=== PATIENT | female | born 1965 | race Hispanic/Latino ===

== ENCOUNTER → 2018-09-15 | Outpatient (CLI) | payer BC ==
--- NOTE | 2018-09-23 08:45 | Diagnostic Imaging Report ---
#[id number] - [id number] #BILATERAL DIGITAL SCREENING MAMMOGRAM WITH CAD: 09/15/2018 CLINICAL: Routine screening. Comparison is made to exam dated: 09/07/2013 mammogram - [facility]. Current study contains 4 films. The tissue of both breasts is heterogeneously dense. This may lower the sensitivity of mammography. Current study was also evaluated with a Computer Aided Detection (CAD) system. Previously noted round mass in the right breast has resolved. There are benign calcifications in the right breast. No significant masses, calcifications, or other findings are seen in either breast. There has been no significant interval change. IMPRESSION: BENIGN There is no mammographic evidence of malignancy. A 1 year screening mammogram is recommended. The patient will be notified by letter of the results. Lg Trevino Jr., D.O. cw/:09/22/2018 16:37:32 [place] St[employer]cher: Opal HERNANDEZ)(Sandip), [facility] letter sent: Compared to Prior B9 Mammogram BI-RADS: 2 Benign
== END ==
LOC: MAMMO 08:45
PROVIDERS: ATTEND Internal Medicine
DX: Z12.31 Encounter for screening mammogram for malignant neoplasm of breast (principal)
CPT/HCPCS: 77067

== ENCOUNTER → 2019-03-10 | Outpatient (CLI) | payer BC ==
--- NOTE | 2019-03-10 09:16 | Diagnostic Imaging Report ---
EXAM: US ABDOMEN COMPLETE DATE: 03/10/2019 8:24 AM INDICATION: Abnormal liver function tests COMPARISON: None TECHNIQUE: Transverse and longitudinal kuo scale and color doppler sonographic images of the upper abdomen were obtained. FINDINGS: LIVER 14.3 cm in the right midclavicular line. Increased echogenicity, normal contour, no masses. SPLEEN 10.1 cm in maximum diameter. Normal echogenicity, no masses. GALLBLADDER No stones, sludge, wall-thickening or pericholecystic fluid. Negative sonographic Abdalla's sign. BILE DUCTS No intra nor extra-hepatic biliary dilation. Common bile duct measures 0.3 cm PANCREAS: Visualized portions are normal. RIGHT KIDNEY: 10.3 cm Echogenicity: Normal Collecting System: No hydronephrosis Stones: None Cyst/Mass: None LEFT KIDNEY: 11 cm Echogenicity: Normal Collecting System: No hydronephrosis Stones: None Cyst/Mass: Lower pole simple cyst measures 1.2 x 0.9 x 1.2 cm VESSELS: Aorta: Visualized portions are within normal size limits Inferior Vena Cava: Visualized portions are normal Main Portal Vein: 1.1 cm, normal size with hepatopetal flow. FREE FLUID: None IMPRESSION: Increased hepatic parenchymal echogenicity compatible with steatosis. Simple left renal cyst. Signed by: Dr. Damian Anderson M.D. on 03/10/2019 9:12 AM
--- NOTE | 2019-03-10 09:23 | Diagnostic Imaging Report ---
Exam: Lumbar spine complete History: Spondylosis Comparison: The report from a CT abdomen and pelvis 02/22/2011 is available for review. No images are available. Findings: There are 5 nonrib-bearing lumbar-type vertebral bodies. No acute, displaced fracture or subluxation. No pars interarticularis defects are identified on the oblique radiographs. mild multilevel disc space narrowing and marginal osteophytosis predominantly affecting L2-L3 and L5-S1. Bilateral facet arthropathy at L5-S1. Sacroiliac joints are intact. Incidental note of multiple calculi projecting over the left renal shadow, the largest of which measures 7 mm projecting over the superior aspect. Impression: No acute osseous abnormality. Multilevel degenerative disc disease and facet arthropathy, worst at L5-S1. Left renal calculi. Signed by: Dr. Damian Anderson M.D. on 03/10/2019 9:20 AM
--- NOTE | 2019-03-10 09:26 | Diagnostic Imaging Report ---
Exam: Cervical spine complete History: Cervical spondylosis Comparison: None. Findings: The cervical spine is visualized from the skull base to the top of T1 on the lateral radiograph. No acute, displaced fracture or subluxation. Soft tissue, ligamentous, and spinal cord abnormalities cannot be excluded on the basis of plain radiography. There is mild disc space narrowing and marginal osteophytosis at C5-6 and C6-7. Uncovertebral arthrosis at these same levels. Neural foramina are patent on the oblique radiographs. Atlantoaxial interval is within normal limits. Prevertebral soft tissues are of normal thickness. Impression: Mild degenerative disc changes at C5-6 and C6-7. Signed by: Dr. Damian Anderson M.D. on 03/10/2019 9:23 AM
--- NOTE | 2019-03-10 09:29 | Diagnostic Imaging Report ---
Exam: Sacrum, 2 views History: Lumbar spondylosis Comparison: Lumbar spine radiographs same day Findings: No acute, displaced fracture or dislocation. No sacrococcygeal step-off on the lateral radiograph. On the frontal radiograph, the sacral foramina are intact superiorly. Inferiorly, the distal sacrum and coccyx are obscured by rectal gas and stool. Sacroiliac joints are intact. Disc space narrowing and endplate sclerosis at L5-S1 partially visualized. Impression: Unremarkable appearance of the sacrum and coccyx. Lumbosacral degenerative disc changes partially visualized. Refer to lumbar spine radiographs same day for further details. Signed by: Dr. Damian Anderson M.D. on 03/10/2019 9:26 AM
== END ==
LOC: US 08:16
PROVIDERS: ATTEND Internal Medicine
DX: M47.812 Spondylosis without myelopathy or radiculopathy, cervical region (principal); M47.816 Spondylosis without myelopathy or radiculopathy, lumbar region; R74.8 Abnormal levels of other serum enzymes
CPT/HCPCS: 72050; 72110; 72220; 76700

== ENCOUNTER 2021-01-10 08:02 | Emergency (ER) | payer BC ==
[~2021-01-10] VITALS: Ht 160 cm; Wt 72.6 kg
[2021-01-10] MEDS ORDERED: METHYLPREDNISOLONE SOD SUCC 125 MG/2ML VIAL IM ONE (09:15)
[2021-01-10] MEDS ORDERED: AZITHROMYCIN 250 MG TAB PO ONE (09:15)
[2021-01-10] MEDS ORDERED: CEFTRIAXONE SOD 1 GM VIAL IM ONE (09:15)
[2021-01-10] MEDS ORDERED: METHYLPREDNISOLONE SOD SUCC 125 MG/2ML VIAL ONE (09:23)
[2021-01-10] MEDS ORDERED: AZITHROMYCIN500 MG PO (09:25)
[2021-01-10] MEDS ORDERED: PREDNISONE20 MG PO (09:25)
[2021-01-10] MEDS ORDERED: PROAIR HFA INH8.5 GM PO (09:25)
[2021-01-10] MEDS ORDERED: ALBUTEROL2.5 MG/3 M NEB (09:25)
[2021-01-10] MEDS ORDERED: CEFDINIR300 MG PO (09:25)
== END 2021-01-10 09:43 | disposition home or self-care (01) ==
LOC: FSED 08:30
DX: U07.1 COVID-19 (principal); J18.9 Pneumonia, unspecified organism; S29.011A Strain of muscle and tendon of front wall of thorax, initial encounter; J98.01 Acute bronchospasm; E11.9 Type 2 diabetes mellitus without complications; R91.8 Other nonspecific abnormal finding of lung field
CPT/HCPCS: 71046; 99283; J0696; J2930; U0002

== ENCOUNTER 2021-01-12 04:18 | Emergency (ER) | payer BC ==
[~2021-01-12] VITALS: Ht 160 cm; Wt 72.6 kg
[~2021-01-12 04:18] MED LIST: ALBUTEROL2.5 MG/3 M NEB; AZITHROMYCIN500 MG PO; CEFDINIR300 MG PO; PREDNISONE20 MG PO; PROAIR HFA INH8.5 GM PO
[2021-01-12] MEDS ORDERED: ACETAMINOPHEN 325 MG TAB ONE (04:41)
[2021-01-12 04:43] LABS: BASOPHILS % 0.2 % (0.0-1.0); HEMATOCRIT 41.9 % (34.2-44.1); HEMOGLOBIN 14.7 g/dL (12.0-16.0); LYMPHOCYTES # (AUTO) 2.1 (1.0-3.2); LYMPHOCYTES % 17.1 % (18.0-39.1); MEAN CORPUSCULAR HEMOGLOBIN 31.7 pg (28-32); MEAN CORPUSCULAR HGB CONC 35.1 g/dL (31-35); MEAN CORPUSCULAR VOLUME 90.5 fL (81-99); MONOCYTES # (AUTO) 0.6 (0.2-0.8); MONOCYTES % 5.3 % (4.4-11.3); NEUTROPHILS # (AUTO) 9.2 (2.1-6.9); NEUTROPHILS % 76.2 % (38.7-80.0); PLATELET COUNT 156 x10e3/uL (140-360); RED BLOOD COUNT 4.63 x10e6/uL (3.6-5.1); RED CELL DISTRIBUTION WIDTH 13.2 % (11.7-14.4)
[2021-01-12] MEDS ORDERED: DEXAMETHASONE SOD PHOS 10 MG/1 ML VIAL IV ONE (04:45)
[2021-01-12] MEDS ORDERED: ACETAMINOPHEN 325 MG TAB PO ONE (04:45)
[2021-01-12] MEDS ORDERED: DEXAMETHASONE SOD PHOS 10 MG/1 ML VIAL ONE (04:49)
[2021-01-12 05:00] LABS: ALANINE AMINOTRANSFERASE 56 IU/L (0-55); ALBUMIN 3.2 g/dL (3.5-5.0); ALBUMIN/GLOBULIN RATIO 0.7 (0.8-2.0); ALKALINE PHOSPHATASE 56 IU/L (40-150); ANION GAP 18.2 mmol/L (8-16); BLOOD UREA NITROGEN 19 mg/dL (7-26); BUN/CREATININE RATIO 23 (6-25); CALCIUM 8.6 mg/dL (8.4-10.2); CARBON DIOXIDE 19 mmol/L (22-29); CHLORIDE 106 mmol/L (98-107); CREATINE KINASE 43 IU/L (29-168); CREATININE, SERUM 0.83 mg/dL (0.57-1.11); EST GLOMERULAR FILTRATION RATE > 60 ML/MIN (60-); GLUCOSE 124 mg/dL (74-118); POTASSIUM 4.2 mmol/L (3.5-5.1); SODIUM 139 mmol/L (136-145)
[2021-01-12] MEDS ORDERED: AZITHROMYCIN 500MG/NS 250 ML 250 ML IV ONE (05:15)
[2021-01-12] MEDS ORDERED: CEFTRIAXONE SOD 1 GM/50 ML BAG IV ONE (05:15)
[2021-01-12] MEDS ORDERED: CEFTRIAXONE SOD 1 GM in SODIUM CHLORIDE 0.9% 50ML 50 ML IV ONE (05:15)
[2021-01-12 06:23] VITALS: BP 132/70
[2021-01-12 06:25] LABS: ABG HCO3 24 mmol/L (22-26); ABG PCO2 33 mmHg (35-45); ABG PH 7.46 (7.35-7.45); ABG PO2 64 mmHg (80-105); ABG TCO2 25
== END 2021-01-12 08:04 | disposition other institution (70) ==
LOC: ER 04:39
DX: U07.1 COVID-19 (principal); R09.02 Hypoxemia; R50.9 Fever, unspecified; R05 Cough; E11.65 Type 2 diabetes mellitus with hyperglycemia; R94.31 Abnormal electrocardiogram [ECG] [EKG]
CPT/HCPCS: 36415; 36600; 71045; 80053; 82550; 82553; 82805; 83880; 84484; 85025; 93005; 99284; J0456; J0696; J1100

== ENCOUNTER 2022-05-17 16:43 | Emergency (ER) | payer SELFPAY ==
[~2022-05-17] VITALS: Ht 160 cm; Wt 72.6 kg
[2022-05-17] MEDS ORDERED: Vancomycin IV 1 GM in SODIUM CHLORIDE 0.9% 250ML 250 ML IV ONE (18:15)
[2022-05-17] MEDS ORDERED: HYDROCODONE/APAP 5MG-325MG TAB PO ONE (18:15)
[2022-05-17 18:54] LABS: BASOPHILS # (AUTO) 0.1 (0.0-0.1); BASOPHILS % 0.5 % (0.0-1.0); EOSINOPHILS # (AUTO) 0.2 (0.0-0.4); EOSINOPHILS % 1.9 % (0.0-6.0); HEMATOCRIT 43.8 % (34.2-44.1); HEMOGLOBIN 14.6 g/dL (12.0-16.0); LYMPHOCYTES # (AUTO) 2.2 (1.0-3.2); LYMPHOCYTES % 18.4 % (18.0-39.1); MEAN CORPUSCULAR HEMOGLOBIN 32.1 pg (28-32); MEAN CORPUSCULAR HGB CONC 33.3 g/dL (31-35); MEAN CORPUSCULAR VOLUME 96.3 fL (81-99); MONOCYTES % 8.8 % (4.4-11.3); NEUTROPHILS # (AUTO) 8.2 (2.1-6.9); NEUTROPHILS % 70.1 % (38.7-80.0); PLATELET COUNT 192 x10e3/uL (140-360); RED BLOOD COUNT 4.55 x10e6/uL (3.6-5.1)
[2022-05-17 19:10] LABS: ALBUMIN 3.8 g/dL (3.5-5.0); ALBUMIN/GLOBULIN RATIO 0.8 (0.8-2.0); ANION GAP 17.4 mmol/L (8-16); CALCIUM 9.3 mg/dL (8.4-10.2); CREATININE, SERUM 0.87 mg/dL (0.57-1.11); POTASSIUM 4.4 mmol/L (3.5-5.1)
[2022-05-17] MEDS ORDERED: IOPAMIDOL 370 MG/ML 100 ML INFUS..BTL INJ ONE (19:49)
[2022-05-17 20:55] VITALS: BP 131/73
== END 2022-05-17 20:58 | disposition home or self-care (01) ==
LOC: ER 17:07
DX: L03.211 Cellulitis of face (principal); Z98.890 Other specified postprocedural states; E11.9 Type 2 diabetes mellitus without complications; Z20.822 Contact with and (suspected) exposure to COVID-19; Z79.899 Other long term (current) drug therapy
CPT/HCPCS: 36415; 70487; 80053; 85025; 87040; 99284; J3370; J7050; Q9967; U0002

== ENCOUNTER 2023-03-23 13:52 | Emergency (ER) | payer OTHER ==
[~2023-03-23] VITALS: Ht 160 cm; Wt 72.6 kg
[2023-03-23 14:31] LABS: BASOPHILS # (AUTO) 0.1 (0.0-0.1); BASOPHILS % 0.5 % (0.0-1.0); EOSINOPHILS # (AUTO) 0.1 (0.0-0.4); EOSINOPHILS % 1.4 % (0.0-6.0); HEMATOCRIT 40.2 % (34.2-44.1); LYMPHOCYTES # (AUTO) 2.9 (1.0-3.2); LYMPHOCYTES % 28.9 % (18.0-39.1); MEAN CORPUSCULAR HEMOGLOBIN 32.8 pg (28-32); MEAN CORPUSCULAR HGB CONC 34.8 g/dL (31-35); MEAN CORPUSCULAR VOLUME 94.1 fL (81-99); MONOCYTES # (AUTO) 0.9 (0.2-0.8); NEUTROPHILS # (AUTO) 5.9 (2.1-6.9); NEUTROPHILS % 59.8 % (38.7-80.0); PLATELET COUNT 172 x10e3/uL (140-360); RED BLOOD COUNT 4.27 x10e6/uL (3.6-5.1)
[2023-03-23 15:03] LABS: ANION GAP 15.9 mmol/L (8-16); CALCIUM 9.2 mg/dL (8.4-10.2); CREATININE, SERUM 1.04 mg/dL (0.57-1.11); POTASSIUM 3.9 mmol/L (3.5-5.1)
[2023-03-23] MEDS ORDERED: IOPAMIDOL 370 MG/ML 100 ML INFUS..BTL INJ ONE (15:15)
[2023-03-23 16:06] VITALS: O2SAT 100
[2023-03-23] MEDS ORDERED: AMOX TR-K CLV1 EAC2 PO (16:19)
[2023-03-23] MEDS ORDERED: NAPROXEN250 MG PO (16:19)
== END 2023-03-23 16:50 | disposition home or self-care (01) ==
LOC: ER 14:04
DX: K04.7 Periapical abscess without sinus (principal); E11.65 Type 2 diabetes mellitus with hyperglycemia; I10 Essential (primary) hypertension
CPT/HCPCS: 36415; 70487; 80048; 85025; 99284; Q9967